=== PATIENT | female | born 1970 | race Caucasian/White ===

== ENCOUNTER 2020-06-23 00:31 | Emergency (ER) | payer MEDICAID ==
[~2020-06-23] VITALS: Ht 165.1 cm; Wt 68.2 kg
[~2020-06-23 00:31] MED LIST: CIPR500T2 PO; FURO-69 PO; HYDR-2761 PO; INSU100I13 SQ; INSU100V6 SQ; PANT20TA2 PO; POLY17PO29 PO; SENN8.6T11 PO; SPIR50TA4 PO
--- NOTE | 2020-06-23 01:05 | PHYS DOC ---
General Adult EDM: Chief Complaint: OTHER COMPLAINTS HPI: HPI: 50-year-old female past medical history significant for diabetes, GERD, cirrhosis with portal hypertension, colon cancer, and bilateral nephrostomy tubes secondary to strictures, presents the ED with complaints of left flank pain stating "I think it's blocked again," poor urine outpt in past 24 hours. Follows with MD [facility]ter in [place] and states her appointment is not until next month. EMR was reviewed and patient was discharged from the hospital 6 days ago. Has history of referred right flank pain from right nephrostomy tube, mostly recently obstructed with right-sided hydronephrosis on June 14, replaced by IR. Review of Systems: Review of Systems: Constitutional: Denies fever or chills. [] Eyes: Denies change in visual acuity. [] HENT: Denies nasal congestion or sore throat. [] Respiratory: Denies cough or shortness of breath. [] Cardiovascular: Denies chest pain or edema. [] GI: Denies abdominal pain, nausea, vomiting, bloody stools or diarrhea. [] : Denies dysuria. [] Musculoskeletal: Denies midline back pain or saddle esthesia Integument: Denies rash or diaphoresis Neurologic: Denies headache, focal weakness or sensory changes. [] Endocrine: Denies polyuria or polydipsia. [] Lymphatic: Denies swollen glands. [] Psychiatric: Denies depression or anxiety. [] Heart Score: C/O Chest Pain: No Risk Factors: Risk Factors: DM, Current or recent (<one month) smoker, HTN, HLP, family history of CAD, obesity. Risk Scores: Score 0 - 3: 2.5% MACE over next 6 weeks - Discharge Home Score 4 - 6: 20.3% MACE over next 6 weeks - Admit for Clinical Observation Score 7 - 10: 72.7% MACE over next 6 weeks - Early Invasive Strategies Allergies: Allergies: Allergies Coded Allergies Type Severity Reaction Last Updated Verified Sulfa (Sulfonamide Antibiotics) Allergy Severe Anaphylaxis 06/10/20 Yes nitrofurantoin Allergy Severe Anxiety 06/10/20 Yes Penicillins Allergy Intermediate Hives 06/10/20 Yes Physical Exam: PE: Constitutional: Well developed, well nourished, no acute distress, non-toxic appearance. HENT: Normocephalic, atraumatic, Eyes: EOMI, conjunctiva normal, no discharge. Neck: Normal range of motion, supple, Cardiovascular: S1/2 present, regular rhythm Lungs & Thorax: Speaking in full sentences, bilateral equal chest rise, no tachypnea or increased work of breathing Abdomen: soft, no tenderness, Skin: Warm, dry, no erythema, no rash. [] Back: No midline tenderness or step-off, no pain with Manish's punch, Extremities: No tenderness, no cyanosis, no lower extremity edema Neurologic: Alert and oriented X 3, normal motor function, normal sensory function, no focal deficits noted. [] Psychologic: Affect normal, judgement normal, mood normal. [] : Yellow cloudy/purulent urine and nephrostomy bag approximately 5 cc, nephrostomy tube clamped and suction with 5 cc syringe-some resistance then easily aspirated cloudy urine - removed 8ccs urine, pt with immediate pain rel ief EKG: EKG: [] Radiology/Procedures: Radiology/Procedures: []IMAGING REPORT Signed PATIENT: ROSSY SCHERER RACCOUNT: [id number] : 1970 LOCATION: ER AGE: 50 SEX: F EXAM STATUS: REG ER ORD. PHYSICIAN: KAYY POLANCO DO REASON: neprhostomy tube not draining PROCEDURE: CT ABDOMEN PELVIS WO CONTRAST CT abdomen and pelvis without contrast COMPARISON: CT abdomen and pelvis June 13, 2020. PQRS statement: CT scans at this facility use dose reduction including either automated exposure control, iterative reconstructions, and /or weight based radiation dosing via mA and kV modification when appropriate to reduce radiation dose to as low as reasonably achievable. HISTORY: Nephrostomy tube not draining. Abdomen findings: Lung bases unremarkable. Splenomegaly stable. Small volume of abdominal pelvic free fluid stable. Atrophy of the pancreas. Adrenal glands and gallbladder are unremarkable. There are bilateral percutaneous nephrostomy tubes stable positions to the prior exam. No hydronephrosis. Nonobstructing urinary calculi. There is diffuse retroperitoneal and mesenteric soft tissue edema similar which surrounds the mesenteric vessels in the pancreas which is stable no discrete edematous enlargement of the pancreas to suggest pancreatitis. Abdominoperineal resection of the rectosigmoid the left lower quadrant colostomy. Moderate volume of stool within the large bowel. Appendix not visualized. There is mild distention and small bowel fold thickening similar the prior exam. No bowel obstruction evident. There may be retroperitoneal adenopathy largest measuring 2 cm left of the aorta on image 48 grossly stable. Diffuse abdominal wall flank soft tissue edema has decreased since the prior exam. Pelvis findings: Rectosigmoid resection. Mild pelvic free fluid mildly decreased. Diffuse pelvic soft tissue edema mildly decreased. Hysterectomy. Bones are unremarkable. IMPRESSION: 1. Rectosigmoid colectomy and left lower quadrant colostomy again demonstrated. There is a moderate volume of stool within the large bowel. No bowel obstruction evident. 2. Small volume of abdominal pelvic free fluid and diffuse abdominal pelvic soft tissue edema again demonstrated could indicate anasarca. 3. Diffuse small bowel fold thickening similar to the prior exam this could be the sequela of anasarca or a diffuse enteritis. 4. Bilateral percutaneous nephrostomy tubes similar positions to the prior exam. No hydronephrosis. No obstructing urinary calculi. 5. Retroperitoneal adenopathy is stable. 6. Urinary bladder wall thickening may indicate cystitis. Electronically signed by: Amira Madrid MD (06/23/2020 3:18 AM) [facility] [place] DICTATED and SIGNED BY: AMIRA MADRID MD DATE: 06/23/20 [id number] 0 Course & Med Decision Making: Course & Med Decision Making Pertinent Labs and Imaging studies reviewed. (See chart for details) Concern for obstructed left nephrostomy tube easily removed obstruction with syringe -patient with immediate relief. CT imaging performed afterward shows no hydronephrosis. Patient afebrile, well-appearing with no subjective fevers or chills. Heart rate is in the upper limit of normal-patient denies any nausea, vomiting or flulike symptoms. Will discharge home with strict ED return precautions were given for fever, worsening back pain or neurologic deficits. Encouraged urgent outpatient follow-up with PMD and neuro IR. Life-threatening processes were considered but are low suspicion at this time, given history, physical exam and ED workup. Pt was educated on all prescription medications and adverse effects. All patient's questions were answered and pt was stable at time of discharge. Life/limb-threatening differential includes but is not limited to, aortic dissection/aneurysm, cauda equina syndrome, transverse myelitis, spinal cord/epidural compression syndromes, discitis, spinal stenosis, epidural abscess or hematoma, osteomyelitis, disc herniation, surgical abdomen, stable or unstable fracture, renal/ureteral colic, sepsis, meningitis, musculoskeletal injury, traumatic injury, intraabdominal/retroperitoneal or pelvic bleeding. I spoken with the patient and her caregivers. I explained the patient's condition, diagnoses and treatment plan based on the information available to me at this time. I have answered the patient and her caregiver's questions and addressed any concerns. The patient and her caregivers have a good understanding of patient's diagnosis, condition and treatment plan as can be expected at this point. Vital signs have been stable. Patient's condition is stable and appropriate for discharge from the emergency department. Patient will pursue further outpatient evaluation with primary care physician or other designated or consulting physician as outlined in the discharge instructions. The patient and/or caregivers are agreeable to this plan of care and follow-up instructions have been explained in detail. The patient and/or caregivers have received these instructions in written form and have expressed an understanding of the discharge instructions. The patient and/or caregivers are aware that any significant change of condition or worsening of symptoms should prompt immediate return to this or the closest emergency department [facility] Disclaimer: Bibi Disclaimer: This electronic medical record was generated, in whole or in part, using a voice recognition dictation system. Departure Departure Impression: Primary Impression: Nephrostomy complication Disposition: 01 DC HOME SELF CARE/HOMELESS Condition: STABLE Referrals: UNKNOWN PCP NAME (PCP) FOLLOW UP WITH FAMILY MEDICINE: Family Medicine Address: [address] [place] [id number] Patient Instructions: Nephrostomy, Care After, Percutaneous Nephrostomy, Care After Additional Instructions: Interventional Radiology & Diagnostic Radiology [facility], [facility] [address], [place] [address] EMERGENCY DEPARTMENT GENERAL DISCHARGE INSTRUCTIONS Thank you for coming to [facility] Emergency Department (ED) today and trusting us with you care. We trust that you had a positive experience in our Emergency Department. If you wish to speak to the department management, you may call the Director at [phone]. YOUR FOLLOW UP INSTRUCTIONS ARE FOLLOWS: 1. Do you have a private Doctor? If you do not have a private doctor, please ask for a resource list of physicians or clinics that may be able to assist you with follow up care. 2. The Emergency Physicain has interpreted your x-rays. The X-Ray specialist will also review them. If there is a change in the findings, you will be notified in 48 hours when at all possible. 3. A lab test or culture has been done, your results will be reviewed and you will be notified if you need a change in treatment. ADDITIONAL INSTRUCTIONS AND INFORMATION: 1. Your care today has been supervised by a physician who is specially trained in emergency care. Many problems require more than one evaluation for a complete diagnosis and treatment. We recommend that you schedule your follow up appointment as recommended to ensure complete treatment of you illness or injury. If you are unable to obtain follow up care and continue to have a problem, or if your condition worsens, we recommend that you return to the ED. 2. We are not able to safely determine your condition over the phone nor are we able to give sound medical advice over the phone. For these safety reasons, if you call for medical advice we will ask you to come to the ED for further evaluation. 3. If you have any questions regarding these discharge instructions please call the ED at [phone]. SAFETY INFORMATION: In the interest of safety, wellness, and injury prevention; we encourage you to wear your sealbelt, if you smoke; quite smoking, and we encourage family to use a protective helmet for bicycling and other sporting events that present an increased risk for head injury. IF YOUR SYMPTOMS WORSEN OR NEW SYMPTOMS DEVELOP, OR YOU HAVE CONCERNS ABOUT YOUR CONDITION; OR IF YOUR CONDITION WORSENS WHILE YOU ARE WAITING FOR YOUR FOLLOW UP APPOINTMENT; EITHER CONTACT YOUR PRIMARY CARE DOCTOR, THE PHYSICIAN WHOSE NAME AND NUMBER YOU WERE GIVEN, OR RETURN TO THE ED IMMEDIATELY. KAYY POLANCO DO Jun 23, 2020 01:05
--- NOTE | 2020-06-23 03:21 | RAD ---
CT abdomen and pelvis without contrast COMPARISON: CT abdomen and pelvis June 13, 2020. PQRS statement: CT scans at this facility use dose reduction including either automated exposure cont rol, iterative reconstructions, and /or weight based radiation dosing via mA and kV modification when appropriate to reduce radiation dose to as low as reasonably achievable. HISTORY: Nephrostomy tube not draining. Abdomen findings: Lung bases unremarkable. Splenomegaly stable. Small volume of abdominal pelvic free fluid stable. Atrophy of the pancreas. Adrenal glands and gallbladder are unremarkable. There are bi lateral percutaneous nephrostomy tubes stable positions to the prior exam. No hydronephrosis. Nonobst ructing urinary calculi. There is diffuse retroperitoneal and mesenteric soft tissue edema similar wh ich surrounds the mesenteric vessels in the pancreas which is stable no discrete edematous enlargemen t of the pancreas to suggest pancreatitis. Abdominoperineal resection of the rectosigmoid the left lo wer quadrant colostomy. Moderate volume of stool within the large bowel. Appendix not visualized. The re is mild distention and small bowel fold thickening similar the prior exam. No bowel obstruction ev ident. There may be retroperitoneal adenopathy largest measuring 2 cm left of the aorta on image 48 g rossly stable. Diffuse abdominal wall flank soft tissue edema has decreased since the prior exam. Pelvis findings: Rectosigmoid resection. Mild pelvic free fluid mildly decreased. Diffuse pelvic soft tissue edema mildly decreased. Hysterectomy. Bones are unremarkable. IMPRESSION: 1. Rectosigmoid colectomy and left lower quadrant colostomy again demonstrated. There is a moderate v olume of stool within the large bowel. No bowel obstruction evident. 2. Small volume of abdominal pelvic free fluid and diffuse abdominal pelvic soft tissue edema again d emonstrated could indicate anasarca. 3. Diffuse small bowel fold thickening similar to the prior exam this could be the sequela of anasarc a or a diffuse enteritis. 4. Bilateral percutaneous nephrostomy tubes similar positions to the prior exam. No hydronephrosis. N o obstructing urinary calculi. 5. Retroperitoneal adenopathy is stable. 6. Urinary bladder wall thickening may indicate cystitis. Electronically signed by: Fidel Madrid MD (06/23/2020 3:18 AM) [facility]
[2020-06-23 03:43] VITALS: BP 106/56
== END 2020-06-23 04:22 | disposition home or self-care (01) ==
LOC: ER 00:31
DX: N99.528 Other complication of incontinent external stoma of urinary tract (principal); R10.9 Unspecified abdominal pain; E11.9 Type 2 diabetes mellitus without complications; K21.9 Gastro-esophageal reflux disease without esophagitis; Z90.89 Acquired absence of other organs; Z88.0 Allergy status to penicillin; Z88.2 Allergy status to sulfonamides
CPT/HCPCS: 74176; 99285